=== PATIENT | female | born 1995 | race Caucasian/White ===

== ENCOUNTER 2018-08-10 20:12 | Inpatient (IN) ==
[2018-08-10] MEDS ORDERED: Sod Chloride 0.9% Inj 1,000 ML IV.SIG ONE (20:21)
[2018-08-10] MEDS ORDERED: Acetaminophen 325 MG Tablet PO ONE (21:02)
[2018-08-10 21:09] LABS: Amphetamine Screen,Urine Neg (Neg); Barbiturate Screen,Urine Neg (Neg); Cannabinoid Screen,Urine Neg (Neg); Cocaine Screen,Urine Neg (Neg)
[2018-08-10 21:13] LABS: Bilirubin,Urine Negative (Negative); Clarity,Urine Hazy (Clear); Color,Urine Yellow (Yellw/Straw); Glucose,Urine (UA) Negative (Negative); Leukocyte Esterase,Urine Negative (Negative); Mucus,Urine Few /lpf (Occasional); Nitrite,Urine Negative (Negative); Specific Gravity,Urine 1.021 (1.002-1.035); Squamous Epithelial Cell,Urine <1 /hpf (0-5)
--- NOTE | 2018-08-10 21:13 | ED ---
HPI General Chief Complaint: Seizure Stated Complaint: Seizure Time Seen by Provider: 08/10/18 20:21 Source: family () Mode of arrival: ambulatory Limitations: altered mental status History of Present Illness HPI Narrative: 23-year-old female came to the emergency room brought by her after having a seizure 1 hour prior to arrival. While in the waiting room patient had to go to the bathroom and her assisted her and was waiting outside the closed door and heard some convulsive noises. He went in and noticed that she was on the floor, unresponsive and bleeding from her mouth. Patient was brought in emergently from the waiting room at that point into the ER to be seen. She was postictal and unable to give any meaningful history. The history was obtained from the at that point. He said that patient had her first seizure 1 hour prior to arrival in the driveway. This was witnessed by the . He described it as generalized tonic-clonic seizure with not significant violent shaking but patient being unresponsive during the episode. It lasted for 1-2 minutes as per the . She was postictal for about 10 minutes. Eventually decided to bring her to the emergency room where she had her second seizure. says that he has known her for 6 years and has never seen her having a seizure. Patient is 22 weeks . He contacted her mother who said that patient had seizures 22 years back. Currently she is not on any seizure medication. She takes vitamins. Patient gets care as per the . He mentioned that today she was complaining of some nausea the entire day but did not have any vomiting episodes. Patient was tachycardic in 1 teens but otherwise hemodynamically stable. She had injured her face and head from the fall. Related Data Home Medications Medication Instructions Recorded Confirmed vit-iron fum-folic ac 1 tab PO DAILY 08/10/18 08/10/18 [ Vitamin] Allergies Allergy/AdvReac Type Severity Reaction Status Date / Time No Known Allergies Allergy Verified 08/10/18 20:19 Review of Systems ROS Unobtainable ROS Unobtainable: unobtainable due to mental status ROS: all other systems reviewed are negative [facility] Medical History Medical History delivery delivered (Acute) Medical history unknown (Acute) Social History Social History Substance History: No History of Abuse Second Hand Smoke Exposure: No Smoking Status: Former smoker How Often Do You Have a Drink Containing Alcohol: Never Immunization History Tetanus Immunization: Unable to Assess Exam Narrative Exam Narrative: GENERAL: Altered mental status, moving all 4 extremities and withdraws to pain, moaning, mild distress SKIN: Focused skin assessment warm/dry. HEAD: 3 cm hematoma on the forehead EYES: Pupils equal and round. No scleral icterus. No injection or drainage. Patient has intraoral bleeding and upper lip contusion ENT: No nasal bleeding or discharge. Mucous membranes pink and moist. NECK: Trachea midline. No JVD. CARDIOVASCULAR: Regular rate and rhythm. No murmur appreciated. RESPIRATORY: No accessory muscle use. Clear to auscultation. Breath sounds equal bilaterally. GASTROINTESTINAL: Abdomen soft, non-tender, nondistended. Hepatic and splenic margins not palpable. MUSCULOSKELETAL: No obvious deformities. No clubbing. No cyanosis. No edema. NEUROLOGICAL: GCS of 10. No obvious cranial nerve deficits. Motor grossly within normal limits. Normal speech. PSYCHIATRIC: Appropriate mood and affect; insight and judgment normal. Course Initial Documented Vital Signs Temperature 98.5 F 08/10/18 20:14 Pulse Rate 103 H 08/10/18 20:14 Respiratory Rate 14 08/10/18 20:14 Blood Pressure 115/59 L 08/10/18 20:14 Pulse Oximetry 98 08/10/18 20:14 Last Documented Vital Signs Temperature 98.5 F 08/10/18 20:14 Pulse Rate 82 08/10/18 23:00 Respiratory Rate 14 08/10/18 23:00 Blood Pressure 103/55 L 08/10/18 23:00 Pulse Oximetry 98 08/10/18 23:00 Medical Decision Making MDM Narrative Medical decision making narrative: 9:14 PM patient had an emesis soon after coming into the emergency room. She protected her airway and vomited. Patient was given IV Zofran. She is getting IV fluid bolus. I was just notified by the nurse that she is far more awake and GCS is 14-15 at this point. Patient is getting an ice pack for her forehead hematoma. I have ordered a head CT and labs. Patient will require admission at this point. 9:47 PM blood test results are back. Patient has slight metabolic acidosis which could be from the seizure. I discussed the case with on-call neurologist Dr. Polanco who recommended an MRI instead of a head CT which would also cover part of the seizure workup. He recommended to start her on Keppra 500 mg twice daily which is safer among the given choices in . He also recommended to start her on 4 mg of folic acid p.o. daily. He is made aware that patient will be admitted and he will consult on the patient. Lab Data Result diagrams: 08/10/18 20:30 08/10/18 20:30 Lab Results 08/10/18 08/10/18 08/10/18 Range/Units 20:30 20:30 20:30 WBC 12.9 H (4.0-11.0) th/mm3 RBC 3.75 L (4.00-5.30) mil/mm3 Hgb 10.5 L (11.6-15.3) gm/dL Hct 32.7 L (35.0-46.0) % MCV 87.3 (80.0-100.0) fL MCH 28.0 (27.0-34.0) pg MCHC 32.1 (32.0-36.0) % RDW 14.7 (11.6-17.2) % Plt Count 203 (150-450) th/mm3 MPV 10.6 (7.0-11.0) fL Neut % (Auto) 78.0 H (16.0-70.0) % Lymph % (Auto) 16.3 (9.0-44.0) % [place] % (Auto) 5.1 (0.0-8.0) % Eos % (Auto) 0.3 (0.0-4.0) % Baso % (Auto) 0.3 (0.0-2.0) % Neut # (Auto) 10.1 H (1.8-7.7) th/mm3 Lymph # (Auto) 2.1 (1.0-4.8) th/mm3 [place] # (Auto) 0.7 (0.0-0.9) th/mm3 Eos # (Auto) 0.0 (0.0-0.4) th/mm3 Baso # (Auto) 0.0 (0.0-0.2) th/mm3 WBC Differential . Differential Comment Auto diff final Sodium 137 (136-145) meq/L Potassium 3.5 (3.5-5.1) meq/L Chloride 104 (98-107) meq/L Carbon Dioxide 19.6 L (21.0-32.0) meq/L Anion Gap 13 (5-15) meq/L BUN 8 (7-18) mg/dL Creatinine 0.68 (0.50-1.00) mg/dL Estimated GFR Greater than 89 (>89) mL/min Random Glucose 126 H (74-106) mg/dL Calcium 8.4 L (8.5-10.1) mg/dL Magnesium 1.9 (1.5-2.5) mg/dL Urine Color (Yellw/Straw) Urine Clarity (Clear) Urine pH (5.0-8.5) Ur Specific [place] (1.002-1.035) Urine Protein (Neg-Trace) mg/dL Urine Glucose (UA) (Negative) mg/dL Urine Ketones (Negative) mg/dL Urine Occult Blood (Negative) Urine Nitrate (Negative) Urine Bilirubin (Negative) Urine Urobilinogen (Less than 2) mg/dL Ur Leukocyte Esterase (Negative) Urine RBC (0-3) /hpf Urine WBC (0-5) /hpf Ur Squamous Epith Cells (0-5) /hpf Urine Mucus (Occasional) /lpf Ur Microscopic Review Urine Opiates Screen Neg (Neg) Ur Barbiturates Screen Neg (Neg) Ur Amphetamines Screen Neg (Neg) U Benzodiazepines Scrn Neg (Neg) Urine Cocaine Screen Neg (Neg) U Cannabinoids Screen Neg (Neg) Serum Alcohol Less than 3 (0-5) mg/dL 08/10/18 Range/Units 20:30 WBC (4.0-11.0) th/mm3 RBC (4.00-5.30) mil/mm3 Hgb (11.6-15.3) gm/dL Hct (35.0-46.0) % MCV (80.0-100.0) fL MCH (27.0-34.0) pg MCHC (32.0-36.0) % RDW (11.6-17.2) % Plt Count (150-450) th/mm3 MPV (7.0-11.0) fL Neut % (Auto) (16.0-70.0) % Lymph % (Auto) (9.0-44.0) % [place] % (Auto) (0.0-8.0) % Eos % (Auto) (0.0-4.0) % Baso % (Auto) (0.0-2.0) % Neut # (Auto) (1.8-7.7) th/mm3 Lymph # (Auto) (1.0-4.8) th/mm3 [place] # (Auto) (0.0-0.9) th/mm3 Eos # (Auto) (0.0-0.4) th/mm3 Baso # (Auto) (0.0-0.2) th/mm3 WBC Differential Differential Comment Sodium (136-145) meq/L Potassium (3.5-5.1) meq/L Chloride (98-107) meq/L Carbon Dioxide (21.0-32.0) meq/L Anion Gap (5-15) meq/L BUN (7-18) mg/dL Creatinine (0.50-1.00) mg/dL Estimated GFR (>89) mL/min Random Glucose (74-106) mg/dL Calcium (8.5-10.1) mg/dL Magnesium (1.5-2.5) mg/dL Urine Color Yellow (Yellw/Straw) Urine Clarity Hazy H (Clear) Urine pH 5.0 (5.0-8.5) Ur Specific [place] 1.021 (1.002-1.035) Urine Protein 30 H (Neg-Trace) mg/dL Urine Glucose (UA) Negative (Negative) mg/dL Urine Ketones Trace H (Negative) mg/dL Urine Occult Blood Small H (Negative) Urine Nitrate Negative (Negative) Urine Bilirubin Negative (Negative) Urine Urobilinogen 2.0 H (Less than 2) mg/dL Ur Leukocyte Esterase Negative (Negative) Urine RBC Less than 1 (0-3) /hpf Urine WBC 1 (0-5) /hpf Ur Squamous Epith Cells <1 (0-5) /hpf Urine Mucus Few H (Occasional) /lpf Ur Microscopic Review Not Reportable Urine Opiates Screen (Neg) Ur Barbiturates Screen (Neg) Ur Amphetamines Screen (Neg) U Benzodiazepines Scrn (Neg) Urine Cocaine Screen (Neg) U Cannabinoids Screen (Neg) Serum Alcohol (0-5) mg/dL Imaging Data Radiologist's impression: Head MRI 08/10/18 21:29 CONCLUSION: 1. No acute intracranial abnormalities are demonstrated. 2. An apparent nonacute frontal scalp hematoma. ECG Data Attestation: I personally reviewed and interpreted this ECG as follows: Interpretation: Twelve-lead EKG was reviewed by me. Normal sinus rhythm, normal axis, nonspecific ST-T wave changes. Heart rate of 99 bpm. Discharge Plan Discharge Disposition Patient Disposition: 30 Still Patient Physicians Team ED Provider: Sayra Zarate Primary Care Provider: Primary Care ElijahiEm Rxs /Orders / Referrals /Forms Prescriptions: No Action vit-iron fum-folic ac [ Vitamin] 27 mg iron- 0.8 mg Tablet 1 tab PO DAILY RF: 0 Discharge Interventions Interventions: Vital Signs Last Done: 08/10/18 23:00 Status ED Status: With Doctor
[2018-08-10 21:14] LABS: Baso % (Auto) 0.3 % (0.0-2.0); Eos % (Auto) 0.3 % (0.0-4.0); Hematocrit 32.7 % (35.0-46.0); Hemoglobin 10.5 gm/dL (11.6-15.3); Lymph # (Auto) 2.1 th/mm3 (1.0-4.8); Lymph % (Auto) 16.3 % (9.0-44.0); Mean Corpuscular HGB Conc 32.1 % (32.0-36.0); Mean Corpuscular Volume 87.3 fL (80.0-100.0); Mean Platelet Volume 10.6 fL (7.0-11.0); Mono # (Auto) 0.7 th/mm3 (0.0-0.9); Mono % (Auto) 5.1 % (0.0-8.0); Neut # (Auto) 10.1 th/mm3 (1.8-7.7); Opiate Screen,Urine Neg (Neg); Platelet Count 203 th/mm3 (150-450); Red Blood Count 3.75 mil/mm3 (4.00-5.30); Red Cell Distribution Width 14.7 % (11.6-17.2); White Blood Count 12.9 th/mm3 (4.0-11.0)
[2018-08-10 21:23] LABS: Anion Gap 13 meq/L (5-15); Blood Urea Nitrogen 8 mg/dL (7-18); Calcium 8.4 mg/dL (8.5-10.1); Carbon Dioxide 19.6 meq/L (21.0-32.0); Chloride 104 meq/L (98-107); Glomerular Filtration Rate Greater Than 89 mL/min (>89); Glucose,Random 126 mg/dL (74-106); Magnesium 1.9 mg/dL (1.5-2.5); Potassium 3.5 meq/L (3.5-5.1); Sodium 137 meq/L (136-145)
[2018-08-10] MEDS ORDERED: Sod Chloride 0.9% Inj 1,000 ML IV.SIG SCH (21:30)
[2018-08-10] MEDS ORDERED: levETIRAcetam 500 MG Tablet PO ONE (21:46)
[2018-08-10] MEDS ORDERED: Folic Acid 1 MG Tablet PO ONE (21:46)
--- NOTE | 2018-08-10 22:19 | MR ---
EXAM DATE: 08/10/2018 10:04 PM EST AGE/SEX: 23 years / Female INDICATIONS: Seizures. CLINICAL DATA: This is the patient's initial encounter. Patient reports that signs and symptoms have been present for 1 day and indicates a pain score of 5/10. MEDICAL/SURGICAL HISTORY: . None. COMPARISON: No prior exams available for comparison. TECHNIQUE: Multiplanar, multisequence examination of the brain was performed without contrast. FINDINGS: Cerebrum: The ventricles are normal for age. No evidence of midline shift, mass lesion, hemorrhage or acute infarction. No extraaxial fluid collections are seen. The pituitary gland and suprasellar cistern are normal in configuration. White Matter: No significant signal abnormalities are seen in the white matter. Posterior Fossa: The cerebellum and brainstem are intact. The 4th ventricle is midline. The cerebel lopontine angle is unremarkable. The cerebellar tonsils are normal in position. Diffusion Imaging: No focal areas of restricted diffusion are seen. No evidence of acute infarction . An approximately 0.7 x 4.4 x 3.0 cm area of swelling and fluid collection seen of the right frontal scalp. Extracranial: The visualized portions of the orbits and paranasal sinuses are unremarkable. CONCLUSION: 1. No acute intracranial abnormalities are demonstrated. 2. An apparent nonacute frontal scalp hematoma. Electronically signed by: Julio Rivera MD 08/10/2018 10:17 PM EST
--- NOTE | 2018-08-11 00:30 | P.HPFP ---
History of Present Illness Primary Care Physician: No Primary Care Physician History of Present Illness: 23 yo at 23 weeks gestation presented to the ED with her following a witnessed seizure. reports 1-2 minute of grand-mal seizure less than 1 hour prior to presenting to the ED. Seizure occurred while walking to their vehicle and her kept her from falling at that time. While in the waiting room, patient had another seizure in the bathroom and subsequently hit her head. Mother states patient had a seizure at 1 years of age but has not had a seizure since and has not been on anti-seizure medications. She was in her normal state of health prior to tonight. Denies any fever, chills, sore throat, cough, chest pain, SOB, N/V, abdominal pain, diarrhea/constipation, dysuria. She denies any gush of vaginal fluid, vaginal bleeding or decreased movement. Uncomplicated Previous ended in a C section due to low lying placenta - patient desires PMH: none Surgical hx: C section, laceration repair on scalp as a child Family hx: one cousin has a seizure disorder Allergies: NKDA Meds: vitamins Social: lives with , parents and daughter. No alcohol, tobacco or drugs - Diagnosis (1) Seizure (2) and not yet delivered in second trimester (3) Head injury (4) Leukocytosis (5) Nutrition, metabolism, and development symptoms Inpatient Certification: I certify that the inpatient services were ordered in accordance with Medicare regulations governing the order. This includes certification that hospital inpatient services are reasonable and necessary and in the case of services not specified as inpatient-only under 42 CFR 419.22(n), that they are appropriately provided as inpatient services in accordance to with the 2-midnight benchmark under 43 CFR 412.3(e) Review of Systems All other systems reviewed negative except as stated in HPI PMFSH - History History Provided By: Patient - Medical History Medical History: Medical History (Last Reviewed 08/10/18 @ 21:11 by Sayra Zarate MD) delivery delivered Medical history unknown - Tobacco History Second Hand Smoke Exposure: No Smoking Status: Former smoker - Alcohol History How Often Do You Have a Drink Containing Alcohol: Never - Substance Use History Substance History: No History of Abuse - Immunization History Tetanus Immunization: Unable to Assess Medications and Allergies Active Medications: Active Medications Sodium Chloride (Ns Flush) 2 ml IV.FLUSH PRN PRN PRN Reason: FLUSH AFTER USING IV ACCESS Last Admin: 08/10/18 20:41 Dose: 2 ml Allergies Allergy/AdvReac Type Severity Reaction Status Date / Time No Known Allergies Allergy Verified 08/10/18 20:19 Home Medications Medication Instructions Recorded Confirmed Type vit-iron fum-folic ac 1 tab PO DAILY 08/10/18 08/10/18 History [ Vitamin] Exam Vital signs: Vital Signs 08/10/18 20:14 08/10/18 20:22 08/10/18 23:00 Temperature 98.5 F Pulse Rate 103 H 82 Respiratory Rate 14 14 14 Blood Pressure 115/59 L 103/55 L Pulse Oximetry 98 98 Intake & Output 08/10/18 08/10/18 08/11/18 06:59 18:59 06:59 Intake Total 1999 Balance 1999 Intake: IV 1999 NS Inj 1,000 ML @ 1000 mls/hr 1999 IV.SIG BOLUS TIRSO Rx#:[id number] Narrative: GENERAL: WF sitting upright in bed in NAD. Patient appears sleepy but answers questions appropriately and is in NAD SKIN: Warm and dry. HEAD: Several abrasions noted on patient's forehead and face with no active bleeding. Roughly 3x3 cm hematoma present under abrasion on her forehead. Small area of dried blood on her L cheek. No other scalp tenderness EYES: Pupils equal and round. No scleral icterus. No injection or drainage. ENT: No nasal bleeding or discharge. Mucous membranes pink and moist. NECK: Trachea midline. No JVD. CARDIOVASCULAR: Regular rate and rhythm. RESPIRATORY: No accessory muscle use. Clear to auscultation. Breath sounds equal bilaterally. GASTROINTESTINAL: Abdomen soft, non-tender, nondistended. Hepatic and splenic margins not palpable. MUSCULOSKELETAL: Extremities without clubbing, cyanosis, or edema. No obvious deformities. NEUROLOGICAL: Awake and alert. No obvious cranial nerve deficits. Motor grossly within normal limits. Five out of 5 muscle strength in the arms and legs. Normal speech. PSYCHIATRIC: Appropriate mood and affect; insight and judgment normal. Results - Labs Result diagrams: 08/10/18 20:30 08/10/18 20:30 Abnormal lab results 08/10/18 08/10/18 08/10/18 Range/Units 20:30 20:30 20:30 WBC 12.9 H (4.0-11.0) th/mm3 RBC 3.75 L (4.00-5.30) mil/mm3 Hgb 10.5 L (11.6-15.3) gm/dL Hct 32.7 L (35.0-46.0) % Neut % (Auto) 78.0 H (16.0-70.0) % Neut # (Auto) 10.1 H (1.8-7.7) th/mm3 Carbon Dioxide 19.6 L (21.0-32.0) meq/L Random Glucose 126 H (74-106) mg/dL Calcium 8.4 L (8.5-10.1) mg/dL Urine Clarity Hazy H (Clear) Urine Protein 30 H (Neg-Trace) mg/dL Urine Ketones Trace H (Negative) mg/dL Urine Occult Blood Small H (Negative) Urine Urobilinogen 2.0 H (Less than 2) mg/dL Urine Mucus Few H (Occasional) /lpf Short CBC 08/10/18 Range/Units 20:30 WBC 12.9 H (4.0-11.0) th/mm3 Hgb 10.5 L (11.6-15.3) gm/dL Hct 32.7 L (35.0-46.0) % Plt Count 203 (150-450) th/mm3 BMP 08/10/18 20:30 Sodium 137 Potassium 3.5 Chloride 104 Carbon Dioxide 19.6 L BUN 8 Creatinine 0.68 Calcium 8.4 L Urine 08/10/18 Range/Units 20:30 Urine Color Yellow (Yellw/Straw) Urine Clarity Hazy H (Clear) Urine pH 5.0 (5.0-8.5) Ur Specific [place] 1.021 (1.002-1.035) Urine Protein 30 H (Neg-Trace) mg/dL Urine Glucose (UA) Negative (Negative) mg/dL - Imaging Impressions Head MRI 08/10/18 21:29 CONCLUSION: 1. No acute intracranial abnormalities are demonstrated. 2. An apparent nonacute frontal scalp hematoma. Caprini VTE Risk Assessment Caprini VTE Risk Assessment: No/Low Risk (score <= 1) Caprini Risk Assessment Model: Point Value = 1 Point Value = 2 Point Value = 3 Point Value = 5 Age 41-60 Minor surgery BMI > 25 kg/m2 Swollen legs Varicose veins or History of unexplained or recurrent spontaneous Oral contraceptives or hormone replacement Sepsis (< 1 month) Serious lung disease, including pneumonia (< 1 month) Abnormal pulmonary function Acute myocardial infarction Congestive heart failure (< 1 month) History of inflammatory bowel disease Medical patient at bed rest Age 61-74 Arthroscopic surgery Major open surgery (> 45 min) Laparoscopic surgery (> 45 min) Malignancy Confined to bed (> 72 hours) Immobilizing plaster cast Central venous access Age >= 75 History of VTE Family history of VTE Factor V Leiden Prothrombin [id number] Lupus anticoagulant Anticardiolipin antibodies Elevated serum homocysteine Heparin-induced thrombocytopenia Other congenital or acquired thrombophilia Stroke (< 1 month) Elective arthroplasty Hip, pelvis, or leg fracture Acute spinal cord injury (< 1 month) Prophylaxis Regimen: Total Risk Factor Score Risk Level Prophylaxis Regimen 0-1 Low Early ambulation 2 Moderate Order ONE of the following: *Sequential Compression Device (SCD) *Heparin 5000 units SQ BID 3-4 Higher Order ONE of the following medications: *Heparin 5000 units SQ TID *Enoxaparin/Lovenox 40 mg SQ daily (WT < 150 kg, CrCl > 30 mL/min) *Enoxaparin/Lovenox 30 mg SQ daily (WT < 150 kg, CrCl > 10-29 mL/min) *Enoxaparin/Lovenox 30 mg SQ BID (WT < 150 kg, CrCl > 30 mL/min) AND/OR *Sequential Compression Device (SCD) 5 or more Highest Order ONE of the following medications: *Heparin 5000 units SQ TID (Preferred with Epidurals) *Enoxaparin/Lovenox 40 mg SQ daily (WT < 150 kg, CrCl > 30 mL/min) *Enoxaparin/Lovenox 30 mg SQ daily (WT < 150 kg, CrCl > 10-29 mL/min) *Enoxaparin/Lovenox 30 mg SQ BID (WT < 150 kg, CrCl > 30 mL/min) AND *Sequential Compression Device (SCD) Assessment and Plan - Assessment (1) Seizure Code(s): R56.9 - Unspecified convulsions Status: Acute Plan: Patient presented with 2 grand mal seizures. mother reports patient had a seizure at 1 years of age but has never been on anticonvulsants No clear inciting event Normotensive on admission, low suspicion for eclampsia Urine tox was negative on admission Received one dose of Keppra 500mg, Folic acid 4mg in the ED Neurology consulted EEG pending Seizure precautions Telemetry continue Keppra 500mg po BID and Folic Acid 4mg po qd per neurology recommendations (2) and not yet delivered in second trimester Code(s): Z34.92 - Encounter for supervision of normal , unspecified, second trimester Status: Acute Plan: 23 weeks gestation with one prior C section Uncomplicated to this point, patient still feeling baby move at time of evaluation OB consulted for heart tones, possible ultrasound (3) Head injury Code(s): S09.90XA - Unspecified injury of head, initial encounter Status: Acute Plan: patient fell and injured her head during her 2nd seizure Several abrasions and a hematoma noted on patient's forehead Head MRI on admission was negative aside from the frontal scalp hematoma Continue to monitor (4) Leukocytosis Code(s): D72.829 - Elevated white blood cell count, unspecified Status: Acute Plan: noted to have a leukocytosis on admission with a WBC of 12.9 UA on admission with no sign of infection could be 2/2 to stress response from seizure - will repeat CBC in the AM (5) Nutrition, metabolism, and development symptoms Code(s): R63.8 - Other symptoms and signs concerning food and fluid intake Status: Acute Plan: Regular diet Received 2 boluses of 1 L NS in ED, no further IVF at this time Zofran as needed for N/V SCD for DVT prophylaxis Tylenol 650mg PRN for pain - Assessment and Plan 23 yo at 23 weeks gestation presented to ED after 2 witnessed seizures. Has apparent history of seizure in childhood - not currently medicated. Normotensive on admission - low suspicion for eclampsia. Consulting Neurology, OB on admission. Started on Keppra and Folic Acid. MRI head after an injury 2/2 to the seizure was negative.
[2018-08-11] MEDS ORDERED: Acetaminophen 325 MG Tablet PO PRN (00:54)
--- NOTE | 2018-08-11 02:00 | P.CONOB ---
History of Present Illness Consult date: 08/11/18 Reason for Consult: Seizure and Primary Care Physician: No Primary Care Physician Chief Complaint: 23-year-old at 23 weeks witnessed by having seizures History of Present Illness: 23 yo at 23 weeks gestation presented to the ED with her following a witnessed seizure. reports 1-2 minute of grand-mal seizure less than 1 hour prior to presenting to the ED. Seizure occurred while walking to their vehicle and her kept her from falling at that time. While in the waiting room, patient had another seizure in the bathroom and subsequently hit her head. Mother states patient had a seizure at 1 years of age but has not had a seizure since and has not been on anti-seizure medications. She was in her normal state of health prior to tonight. Denies any fever, chills, sore throat, cough, chest pain, SOB, N/V, abdominal pain, diarrhea/constipation, dysuria. She denies any gush of vaginal fluid, vaginal bleeding or decreased movement. Uncomplicated Previous ended in a C section due to low lying placenta - patient desires PMH: none Surgical hx: C section, laceration repair on scalp as a child Family hx: one cousin has a seizure disorder Allergies: NKDA Meds: vitamins Social: lives with , parents and daughter. No alcohol, tobacco or drugs Weeks Gestation:: 23 Para: 1 : 2 Review of Systems All other systems reviewed negative except as stated in HPI PMFSH - History History Provided By: Patient, Significant Other, Medical Record - Medical History Medical History: Medical History (Last Updated 08/11/18 @ 01:55 by Amarilis Stanton MD) Seizure in childhood delivery delivered Medical history unknown - Tobacco History Second Hand Smoke Exposure: No Smoking Status: Former smoker - Alcohol History How Often Do You Have a Drink Containing Alcohol: Never - Substance Use History Substance History: No History of Abuse - Immunization History Tetanus Immunization: Unable to Assess Medications and Allergies Active Medications: Active Medications Acetaminophen (Tylenol) 650 mg PO Q4H PRN PRN Reason: Temp > 100.4 Folic Acid (Folic Acid) 4 mg PO DAILY [facility] Levetiracetam (Keppra) 500 mg PO BID [facility] Ondansetron HCl (Zofran Inj) 4 mg IV.PUSH Q6H PRN PRN Reason: NAUSEA OR VOMITING Senna/Docusate Sodium (Elvira-Colace) 1 tab PO BID [facility] Sodium Chloride (Ns Flush) 2 ml IV.FLUSH PRN PRN PRN Reason: FLUSH AFTER USING IV ACCESS Last Admin: 08/10/18 20:41 Dose: 2 ml Allergies Allergy/AdvReac Type Severity Reaction Status Date / Time No Known Allergies Allergy Verified 08/10/18 20:19 Home Medications Medication Instructions Recorded Confirmed Type vit-iron fum-folic ac 1 tab PO DAILY 08/10/18 08/10/18 History [ Vitamin] Exam Vital signs: Vital Signs 08/10/18 20:14 08/10/18 20:22 08/10/18 23:00 Temperature 98.5 F Pulse Rate 103 H 82 Respiratory Rate 14 14 14 Blood Pressure 115/59 L 103/55 L Pulse Oximetry 98 98 Intake & Output 08/10/18 08/10/18 08/11/18 06:59 18:59 06:59 Intake Total 1999 Balance 1999 Intake: IV 1999 NS Inj 1,000 ML @ 1000 mls/hr 1999 IV.SIG BOLUS [facility] Rx#:[id number] - Constitutional no acute distress (Answers questions appropriately cooperative), thin - Routine HEENT Exam Head: Present: facial swelling (Multiple lacerations noted /bruising and hematoma present on the forehead-status post fall) - Routine Chest/Breast/Axilla Exam Chest wall: Absent: tenderness Breast: Absent: tenderness - Routine Respiratory Exam Absent: accessory muscle use - Routine Abdominal Exam Present: soft (Gravid/no bruising no ecchymosis noted on the abdomen/ heart tones 150) - Routine Extremities Exam Absent: cyanosis Results - Labs CBC & Chem 7: 08/10/18 20:30 08/10/18 20:30 Labs: Laboratory Results - last 24 hr 08/10/18 08/10/18 08/10/18 20:30 20:30 20:30 WBC 12.9 H RBC 3.75 L Hgb 10.5 L Hct 32.7 L MCV 87.3 MCH 28.0 MCHC 32.1 RDW 14.7 Plt Count 203 MPV 10.6 Neut % (Auto) 78.0 H Lymph % (Auto) 16.3 Robertson % (Auto) 5.1 Eos % (Auto) 0.3 Baso % (Auto) 0.3 Neut # (Auto) 10.1 H Lymph # (Auto) 2.1 Robertson # (Auto) 0.7 Eos # (Auto) 0.0 Baso # (Auto) 0.0 WBC Differential . Differential Comment Auto diff final Sodium 137 Potassium 3.5 Chloride 104 Carbon Dioxide 19.6 L Anion Gap 13 BUN 8 Creatinine 0.68 Estimated GFR Greater than 89 Random Glucose 126 H Calcium 8.4 L Magnesium 1.9 Urine Color Urine Clarity Urine pH Ur Specific [place] Urine Protein Urine Glucose (UA) Urine Ketones Urine Occult Blood Urine Nitrate Urine Bilirubin Urine Urobilinogen Ur Leukocyte Esterase Urine RBC Urine WBC Ur Squamous Epith Cells Urine Mucus Ur Microscopic Review Urine Opiates Screen Neg Ur Barbiturates Screen Neg Ur Amphetamines Screen Neg U Benzodiazepines Scrn Neg Urine Cocaine Screen Neg U Cannabinoids Screen Neg Serum Alcohol Less than 3 08/10/18 20:30 WBC RBC Hgb Hct MCV MCH MCHC RDW Plt Count MPV Neut % (Auto) Lymph % (Auto) Robertson % (Auto) Eos % (Auto) Baso % (Auto) Neut # (Auto) Lymph # (Auto) Robertson # (Auto) Eos # (Auto) Baso # (Auto) WBC Differential Differential Comment Sodium Potassium Chloride Carbon Dioxide Anion Gap BUN Creatinine Estimated GFR Random Glucose Calcium Magnesium Urine Color Yellow Urine Clarity Hazy H Urine pH 5.0 Ur Specific [place] 1.021 Urine Protein 30 H Urine Glucose (UA) Negative Urine Ketones Trace H Urine Occult Blood Small H Urine Nitrate Negative Urine Bilirubin Negative Urine Urobilinogen 2.0 H Ur Leukocyte Esterase Negative Urine RBC Less than 1 Urine WBC 1 Ur Squamous Epith Cells <1 Urine Mucus Few H Ur Microscopic Review Not Reportable Urine Opiates Screen Ur Barbiturates Screen Ur Amphetamines Screen U Benzodiazepines Scrn Urine Cocaine Screen U Cannabinoids Screen Serum Alcohol - Imaging Impressions Head MRI 08/10/18 21:29 CONCLUSION: 1. No acute intracranial abnormalities are demonstrated. 2. An apparent nonacute frontal scalp hematoma. Assessment and Plan - Diagnosis (1) Seizure Code(s): R56.9 - Unspecified convulsions Status: Acute (2) 23 weeks gestation of Code(s): Z3A.23 - 23 weeks gestation of Status: Acute - Plan No signs of abdominal trauma heart tones present-we will consider ultrasound and possible MFM consult as needed. Consult with neurology patient started on Keppra and folic acid also EEG ordered for the a.m. MRI is negative
[2018-08-11 03:03] LABS: Baso % (Auto) 0.5 % (0.0-2.0); Eos % (Auto) 0.1 % (0.0-4.0); Hematocrit 23.9 % (35.0-46.0); Hemoglobin 8.4 gm/dL (11.6-15.3); Lymph # (Auto) 1.2 th/mm3 (1.0-4.8); Lymph % (Auto) 11.9 % (9.0-44.0); Mean Corpuscular HGB Conc 35.2 % (32.0-36.0); Mean Corpuscular Hemoglobin 29.9 pg (27.0-34.0); Mean Platelet Volume 9.7 fL (7.0-11.0); Mono # (Auto) 0.6 th/mm3 (0.0-0.9); Mono % (Auto) 5.4 % (0.0-8.0); Neut # (Auto) 8.5 th/mm3 (1.8-7.7); Neut % (Auto) 82.1 % (16.0-70.0); Platelet Count 155 th/mm3 (150-450); Red Blood Count 2.82 mil/mm3 (4.00-5.30); White Blood Count 10.3 th/mm3 (4.0-11.0)
[2018-08-11 03:41] LABS: Alanine Aminotransferase 8 U/L (10-53); Albumin 2.3 g/dL (3.4-5.0); Alkaline Phosphatase 79 U/L (45-117); Anion Gap 4 meq/L (5-15); Aspartate Aminotransferase 9 U/L (15-37); Blood Urea Nitrogen 5 mg/dL (7-18); Calcium 6.9 mg/dL (8.5-10.1); Carbon Dioxide 23.1 meq/L (21.0-32.0); Chloride 114 meq/L (98-107); Glomerular Filtration Rate Greater Than 89 mL/min (>89); Glucose,Random 102 mg/dL (74-106); Potassium 3.8 meq/L (3.5-5.1); Sodium 141 meq/L (136-145); Total Protein 5.2 g/dL (6.4-8.2)
[2018-08-11 06:49] LABS: Hematocrit 23.6 % (35.0-46.0); Hemoglobin 8.2 gm/dL (11.6-15.3)
[2018-08-11] MEDS: Senna/Docusate Sodium 8.6/50 MG Tablet PO SCH ×2 (09:04→21:24)
[2018-08-11] MEDS: levETIRAcetam 250 MG Tablet PO SCH ×2 (09:05→21:24)
--- NOTE | 2018-08-11 09:57 | P.PNADD ---
Addendum to Inpatient Note Reason for Addendum: Additional Documentation Additional information: Overnight patient had low blood pressures to as low as 87/49, she was given an additional 1L NS bolus. Blood pressures remained stable thereafter. Patient is seen and examined this AM, she is alert and fully oriented. She is able to recall hitting her head in the waiting room of the ED with her reported second seizure. Her PFSH is reviewed. She reports a seizure when she was about 1 or 1 years of age, but denies any seizures thereafter until yesterday. She reports being otherwise healthy and having an uncomplicated thus far. She is a currently at about 23 weeks gestation. This AM she states she feels ok overall, does have some slight external head pain due to her fall. Denies any other focal neurological deficit. Denies changes in vision, weakness, fevers, CP , palpitations, dyspnea, recent illnesses, sick symptoms, urinary symptoms. Her only questions is to what may have caused her seizure. Her results including her brain MRI are reviewed with her. EEG was performed later this morning. Plan is to continue Keppra 500 mg po bid along with folic acid 4 mg po daily, await results of EEG and further recommendations from neurology. Anticipate discharge home possibly later today or tomorrow.
[2018-08-11 11:13] LABS: Hematocrit 27.1 % (35.0-46.0); Hemoglobin 9.6 gm/dL (11.6-15.3)
[2018-08-11 11:34] LABS: Anion Gap 8 meq/L (5-15); Blood Urea Nitrogen 4 mg/dL (7-18); Carbon Dioxide 21.9 meq/L (21.0-32.0); Chloride 112 meq/L (98-107); Glomerular Filtration Rate Greater Than 89 mL/min (>89); Glucose,Random 80 mg/dL (74-106); Potassium 3.3 meq/L (3.5-5.1); Sodium 142 meq/L (136-145)
[2018-08-11 13:28] LABS: Hematocrit 27.8 % (35.0-46.0); Hemoglobin 9.3 gm/dL (11.6-15.3)
--- NOTE | 2018-08-11 14:17 | MB ---
cc: Linn Hyman MD DATE: 08/11/2018 REASON FOR CONSULTATION: Seizure. HISTORY OF PRESENT ILLNESS: The patient is a 23-year-old woman brought in by her after having a witnessed seizure while out in the driveway. Apparently had another one in the ER bathroom. The states that he saw her having her arms extended, convulsing, without any tongue biting or incontinence with postictal confusion. She states that she has been getting enough sleep since she no longer is working. Nothing unusual. Did not have a cold. The patient is 23 weeks . Her mother states that she had febrile seizures when she was a young child that no longer occurred as an adult. She did have some minor head trauma when she was a young child as well. No WAREHOUSE LEAD infections, but she did have a speech issue and had to go to speech classes growing up. The patient denies any headache, chest pain, shortness of breath, nausea, vomiting, diarrhea, neck stiffness. PAST MEDICAL HISTORY: Except for febrile seizures unremarkable. Some minor head trauma as a child and a speech defect growing up. FAMILY HISTORY: She has a cousin and aunt who have epilepsy. ALLERGIES: NONE. MEDICATIONS: vitamin. SOCIAL HISTORY: She lives with her , parents and daughter. There is no tobacco, alcohol, or drug history. PHYSICAL EXAMINATION: VITAL SIGNS: Temperature is 97.2, pulse 81, respiratory rate 19, blood pressure 90/52, saturating at 100% on room air. NECK: Supple. HEART: Regular. NEUROLOGIC: She is awake, alert. She does have some abrasions over the forehead from her fall from the second seizure. Pupils reactive. Face symmetrical. Tongue midline. No tongue laceration. Motor: No drift, no leg lag. Cerebellar normal. DTRs are 1+. Toes, withdraws. Gait is withheld. She has been ambulating to the bathroom. LABORATORY DATA: Reviewed. White count is 10.3. Her last hemoglobin 9.6, platelets 155,000. Chemistries: Potassium 3.3, calcium is 8, albumin 2.3. Urine: 1 white, small occult blood, trace ketones. Toxicology screen was negative. IMAGING: MRI brain was no acute abnormalities seen, just a frontal scalp hematoma noted. IMPRESSION: Status post seizure, new onset, did have a seizure as a child. PLAN: It was recommended by my associate overnight to start her on Keppra. Will continue her Keppra 500 mg twice a day, least side effects to the fetus. Continue folic acid 4 mg daily. MRI was unremarkable. EEG was completed. Will have that report, but anticipate her to follow up with our office in the next few weeks. No driving for 6 months. No swimming alone. No bathing alone. No climbing ladders. Discussed with her and with her and her mother. She may need a slight elevation in Keppra, depending on how she does with it. I would anticipate that she could have a Keppra level as an outpatient as well. We will continue current recommendations. Likely discharge planning tomorrow morning if she remains stable. MD LARRY De Leon/arnaud , 12:57 PM , 01:05 PM
--- NOTE | 2018-08-11 21:10 | MG ---
cc: Linn Hyman MD ELECTROENCEPHALOGRAM NUMBER: [id number] REFERRING PHYSICIAN: Sree ROOM: [id number] The patient had only had photic stimulation. Noted to be 5 months with new onset seizure. On Keppra currently, folic acid. MRI was unremarkable. History of febrile seizures as a child. DESCRIPTION OF RECORD: The patient has an overall alpha rhythm of 8 Hz, 20-50 microvolts. Symmetrical background, otherwise well organized. Noted that she tends to fall asleep. There is some mild attenuation, but then the background becomes symmetrical again. Some minor movement and myogenic artifact, but overall symmetrical. Photic stimulation with posterior driving response. No evidence of any epileptiform features in this one recording. Clinical correlation. MD LARRY De Leon/brett , 08:05 PM , 08:10 PM
[2018-08-11] MEDS: Folic Acid 1 MG Tablet PO SCH (21:23)
[2018-08-12 06:48] VITALS: TEMP 97.6
--- NOTE | 2018-08-12 06:48 | ECG ---
Date Performed: 08/10/2018 Time Performed: 20:58:59 PTAGE: 23 years EKG: Sinus rhythm NONSPECIFIC T-WAVE ABNORMALITY BORDERLINE ECG NO PREVIOUS TRACING DOCTOR: Alhaji Charles Interpretating Date/Time 08/12/2018 06:44:55
[2018-08-12 08:48] VITALS: BP 105/51; PULSE 90; RESP 17; O2SAT 98
[2018-08-12] MEDS: Senna/Docusate Sodium 8.6/50 MG Tablet PO SCH (08:53)
[2018-08-12] MEDS: levETIRAcetam 250 MG Tablet PO SCH ×2 (08:53→10:45)
[2018-08-12] MEDS: Folic Acid 1 MG Tablet PO SCH (08:57)
--- NOTE | 2018-08-12 09:09 | P.PNFP ---
Subjective Interval history: Patient reports feeling well except for some headache, which she attributes to her recent fall, and some nausea. Patient is requesting Tylenol and Zofran. Discussed plan of care and discharge plans with patient and with nurse. Nurse gave patient morning Keppra and morning medications and then patient almost immediately vomited. I recommended repeating dose of Keppra. <Aman Liu - 08/12/18 09:31> Results - Labs Result diagrams: 08/11/18 13:00 08/11/18 10:46 <Marika Chin - 08/13/18 10:14> Abnormal lab results 08/11/18 08/11/18 08/11/18 Range/Units 10:46 10:46 13:00 Hgb 9.6 L 9.3 L (11.6-15.3) gm/dL Hct 27.1 L 27.8 L (35.0-46.0) % Potassium 3.3 L (3.5-5.1) meq/L Chloride 112 H (98-107) meq/L BUN 4 L (7-18) mg/dL Calcium 8.0 L D (8.5-10.1) mg/dL Short CBC 08/11/18 08/11/18 Range/Units 10:46 13:00 Hgb 9.6 L 9.3 L (11.6-15.3) gm/dL Hct 27.1 L 27.8 L (35.0-46.0) % BMP 08/11/18 10:46 Sodium 142 Potassium 3.3 L Chloride 112 H Carbon Dioxide 21.9 BUN 4 L Creatinine 0.53 Calcium 8.0 L D <Aman Liu - 08/12/18 09:09> Physical Exam Vital signs: Vital Signs 08/11/18 10:39 08/11/18 11:25 08/11/18 16:40 Temperature 97.7 F 97.9 F Pulse Rate 79 70 Respiratory Rate 19 19 Blood Pressure 93/52 L 88/54 L Pulse Oximetry 100 100 99 08/11/18 20:00 08/12/18 00:00 08/12/18 04:00 Temperature 97.8 F 98 F 97.6 F Pulse Rate 91 H 77 92 H Respiratory Rate 18 18 18 Blood Pressure 89/53 L 89/54 L 85/50 L Pulse Oximetry 97 97 99 08/12/18 04:43 08/12/18 08:00 Temperature 97.6 F Pulse Rate 76 90 Respiratory Rate 17 Blood Pressure 105/51 L Pulse Oximetry 98 Intake & Output 08/11/18 08/12/18 08/12/18 18:59 06:59 18:59 Intake Total 480 / 480 Balance 480 / 480 Weight 62 kg Intake: Oral 480 / 480 Other: # Voids 4 1 <Aman Liu - 08/12/18 09:09> Narrative: GENERAL: gravid WF sitting upright in bed in NAD. SKIN: Warm and dry. HEAD: Several abrasions noted on patient's forehead and face with no active bleeding. Roughly 3x3 cm hematoma present under abrasion on her forehead. EYES: Pupils equal and round. No scleral icterus. No injection or drainage. ENT: No nasal bleeding or discharge. Mucous membranes pink and moist. NECK: Trachea midline. No JVD. CARDIOVASCULAR: Regular rate and rhythm. RESPIRATORY: No accessory muscle use. Clear to auscultation. Breath sounds equal bilaterally. GASTROINTESTINAL: Abdomen gravid, non-tender, nondistended. MUSCULOSKELETAL: Extremities without clubbing, cyanosis, or edema. No obvious deformities. NEUROLOGICAL: Awake and alert. No obvious cranial nerve deficits. Motor grossly within normal limits. Five out of 5 muscle strength in the arms and legs. Normal speech. PSYCHIATRIC: Appropriate mood and affect; insight and judgment normal. <Aman Liu - 08/12/18 09:09> Assessment and Plan - Assessment (1) Seizure Code(s): R56.9 - Unspecified convulsions Status: Acute (2) and not yet delivered in second trimester Code(s): Z34.92 - Encounter for supervision of normal , unspecified, second trimester Status: Acute (3) Head injury Code(s): S09.90XA - Unspecified injury of head, initial encounter Status: Acute (4) Leukocytosis Code(s): D72.829 - Elevated white blood cell count, unspecified Status: Resolved (5) Nutrition, metabolism, and development symptoms Code(s): R63.8 - Other symptoms and signs concerning food and fluid intake Status: Acute <Marika Chin - 08/13/18 10:14> (1) Seizure Code(s): R56.9 - Unspecified convulsions Status: Acute Plan: Normotensive on admission, low suspicion for eclampsia Urine tox was negative on admission Neurology consulted. Appreciate recommendations below: -continue Keppra 500 mg twice a day (least side effects to the fetus) -Continue folic acid 4 mg daily. -MRI was unremarkable. -EEG was completed. -follow up with neurology in the next few weeks. -No driving for 6 months. No swimming alone. No bathing alone. No climbing ladders. -titrate/consider elevation in Keppra, depending on how she does with it. -Keppra level as an outpatient -likely discharge today Seizure precautions Telemetry (2) and not yet delivered in second trimester Code(s): Z34.92 - Encounter for supervision of normal , unspecified, second trimester Status: Acute Plan: 23 weeks gestation with one prior C section Uncomplicated to this point, patient still feeling baby move at time of evaluation -SECOND WATCH SERGEANT consult appreciated -outpatient MFM consult (3) Head injury Code(s): S09.90XA - Unspecified injury of head, initial encounter Status: Acute Plan: patient fell and injured her head during her 2nd seizure Several abrasions and a hematoma noted on patient's forehead Head MRI on admission was negative aside from the frontal scalp hematoma Continue to monitor -Tylenol as needed for headache (4) Leukocytosis Code(s): D72.829 - Elevated white blood cell count, unspecified Status: Resolved Plan: noted to have a leukocytosis on admission with a WBC of 12.9. Resolved on -UA unremarkable (5) Nutrition, metabolism, and development symptoms Code(s): R63.8 - Other symptoms and signs concerning food and fluid intake Status: Acute Plan: Regular diet Zofran as needed for N/V SCD for DVT prophylaxis Tylenol 650mg PRN for pain <Aman Liu - 08/12/18 09:30> - Assessment and Plan 23 yo at 23 weeks gestation presented to ED after 2 witnessed seizures. Has apparent history of seizure in childhood - not currently medicated. Normotensive on admission - low suspicion for eclampsia. Consulting Neurology, OB on admission. Started on Keppra and Folic Acid. MRI head after an injury 2/2 to the seizure was negative. EEG was done. Follow up with neurology, MFM, OB. Get outpatient Keppra level. Likely discharge today. <Aman Liu - 08/12/18 09:31> Discussed Condition With: Dr. Chin <Aman Liu - 08/12/18 09:31> - Attending Attestation The exam, history, and the medical decision-making described in the above note were completed with the assistance of the resident physician. I reviewed and agree with the findings presented. I attest that I had a [id number] encounter with the patient on the same day, and personally performed and documented my assessment and findings in the medical record. she has had no further seizures since admission. she very much wants to go home <Marika Chin - 08/13/18 10:14>
--- NOTE | 2018-08-12 09:19 | P.CONOB ---
History of Present Illness Primary Care Physician: No Primary Care Physician Chief Complaint: 23-year-old at 23 weeks witnessed by having seizures History of Present Illness: Subjective: Patient doing well this morning. Setting up in bed. Eating breakfast. States that she is ready to go home. Denies fevers, CP, SOB, N/V, and abdominal pain. Weeks Gestation:: 23 PMFSH - History History Provided By: Patient, Significant Other, Medical Record - Medical History Medical History: Medical History (Last Updated 08/11/18 @ 01:55 by Amarilis Stanton MD) Seizure in childhood delivery delivered Medical history unknown - Tobacco History Second Hand Smoke Exposure: No Smoking Status: Former smoker - Alcohol History How Often Do You Have a Drink Containing Alcohol: Never - Substance Use History Substance History: No History of Abuse - Immunization History Tetanus Immunization: Unable to Assess Hx Influenza Vaccine This Season: No Medications and Allergies Allergies Allergy/AdvReac Type Severity Reaction Status Date / Time No Known Allergies Allergy Verified 08/10/18 20:19 Active Medications: Active Medications Acetaminophen (Tylenol) 650 mg PO Q4H PRN PRN Reason: TEMP>101F, PAIN 1-10, HEADACHE Last Admin: 08/11/18 11:55 Dose: 650 mg Folic Acid (Folic Acid) 4 mg PO DAILY [facility] Last Admin: 08/12/18 08:57 Dose: 4 mg Levetiracetam (Keppra) 500 mg PO BID [facility] Last Admin: 08/12/18 08:53 Dose: 500 mg Ondansetron HCl (Zofran Inj) 4 mg IV.PUSH Q6H PRN PRN Reason: NAUSEA OR VOMITING Last Admin: 08/12/18 08:57 Dose: 4 mg Senna/Docusate Sodium (Elvira-Colace) 1 tab PO BID [facility] Last Admin: 08/12/18 08:53 Dose: 1 tab Sodium Chloride (Ns Flush) 2 ml IV.FLUSH PRN PRN PRN Reason: FLUSH AFTER USING IV ACCESS Last Admin: 08/10/18 20:41 Dose: 2 ml Exam Vital signs: Vital Signs 08/11/18 10:39 08/11/18 11:25 08/11/18 16:40 Temperature 97.7 F 97.9 F Pulse Rate 79 70 Respiratory Rate 19 19 Blood Pressure 93/52 L 88/54 L Pulse Oximetry 100 100 99 08/11/18 20:00 08/12/18 00:00 08/12/18 04:00 Temperature 97.8 F 98 F 97.6 F Pulse Rate 91 H 77 92 H Respiratory Rate 18 18 18 Blood Pressure 89/53 L 89/54 L 85/50 L Pulse Oximetry 97 97 99 08/12/18 04:43 08/12/18 08:00 Temperature 97.6 F Pulse Rate 76 90 Respiratory Rate 17 Blood Pressure 105/51 L Pulse Oximetry 98 Intake & Output 08/11/18 08/12/18 08/12/18 18:59 06:59 18:59 Intake Total 480 / 480 Balance 480 / 480 Weight 62 kg Intake: Oral 480 / 480 Other: # Voids 4 1 Narrative: GENERAL: Well-nourished, well-developed patient. CARDIOVASCULAR: Regular rate and rhythm without murmurs, gallops, or rubs. RESPIRATORY: Breath sounds equal bilaterally. No accessory muscle use. ABDOMEN/GI: Abdomen soft, non-tender, positive BS, no guarding or rebound EXTREMITIES: No cyanosis or edema, non-tender, without signs of DVT. Results - Labs CBC & Chem 7: 08/11/18 13:00 08/11/18 10:46 Labs: Laboratory Results - last 24 hr 08/11/18 08/11/18 08/11/18 10:46 10:46 13:00 Hgb 9.6 L 9.3 L Hct 27.1 L 27.8 L Sodium 142 Potassium 3.3 L Chloride 112 H Carbon Dioxide 21.9 Anion Gap 8 BUN 4 L Creatinine 0.53 Estimated GFR Greater than 89 Random Glucose 80 Calcium 8.0 L D Assessment and Plan - Diagnosis (1) Seizure Code(s): R56.9 - Unspecified convulsions Status: Acute Plan: 23 yo at 23/ gestation presented to the ED with her following a witnessed seizure. -Neurology consulted, appreciated recommendations -Continue Keppra 500mg BID and folic acid 4mg daily -EEG and MRI negative -F/U with neurology outpatient (2) and not yet delivered in second trimester Code(s): Z34.92 - Encounter for supervision of normal , unspecified, second trimester Status: Acute Plan: -OB US 08/11- good growth of fetus, no anomalies, normal amniotic fluid -F/U with Dr. Tripathi for routine OB care -Patient will be referred to MFM -OB will sign off dw Dr. Mccartney Agree with above resident note, hx reviewed and case discussed with Dr. Cummings, Neg MRI Brain and Neg EEG, OB team will sign off, F/U with OB for follow up and with MFM. -Beatriz Mccartney M.D.
== END 2018-08-12 11:58 | disposition home or self-care (01) ==
LOC: NEPC 20:12 → NEDA 08-11 00:13 → N06 08-11 01:58
PROVIDERS: ADMIT Family Medicine; ATTEND Family Medicine